=== PATIENT | male | born 1975 | race Caucasian/White ===

== ENCOUNTER 2017-06-17 20:55 | Emergency (ER) | payer SELFPAY ==
[2017-06-17 21:18] LABS: Clarity Turbid (Clear)
[2017-06-17 21:20] LABS: Specific Gravity, Urine 1.025 (1.002-1.036)
[2017-06-17] MEDS ORDERED: Ketorolac Tromethamine 30 MG/ML VIAL ONE ×2 (21:23→22:26)
[2017-06-17 21:46] LABS: Hemoglobin 15.5 g/dL (14.0-18.0)
[2017-06-17 21:47] LABS: #Basophils 0.2 thou/uL (0.0-0.2); #Eosinphils 0.3 thou/uL (0.0-0.7)
[2017-06-17 21:48] LABS: PLT Morphology Comment Appears Adequate
[2017-06-17 21:49] LABS: Red Blood Cell (RBC) Count 5.07 mill/uL (4.70-6.10); White Blood Cell (WBC) Count 12.3 thou/uL (4.8-10.8)
[2017-06-17 21:50] LABS: %Basophils 1.5 % (0.0-1.0); %Eosinophils 2.4 % (0.0-10.0); %Lymphocytes 18.8 % (21.0-51.0); %Monocytes 5.3 % (0.0-10.0); ALT (SGPT) 58 U/L (8-55); AST (SGOT) 36 U/L (5-34); Albumin 4.2 g/dL (3.5-5.0); Alkaline Phosphatase 81 U/L (40-150); Anion Gap 14 mmol/L (10-20); BUN (Urea Nitrogen) 17 mg/dL (8.9-20.6); Bilirubin, Total 0.8 mg/dL (0.2-1.2); Calc. Creatinine Clearance 0 mL/min (70-130); Calcium 9.7 mg/dL (7.8-10.44); Carbon Dioxide 26 mmol/L (22-29); Chloride 106 mmol/L (98-107); Estimated GFR-MDRD 83; Globulin 2.8 g/dL (2.4-3.5); Glucose 168 mg/dL (70-105); Lipase 24 U/L (8-78); Mean Corpuscular HGB CONC 36.5 g/dL (32.0-36.0); Mean Corpuscular Hemoglobin 30.6 pg (27.0-31.0); Mean Corpuscular Volume 83.6 fL (80.0-94.0); Mean Platelet Volume 9.3 fL (7.4-10.4); Platelet Count 234 thou/uL (130-400); Potassium 3.7 mmol/L (3.5-5.1); RBC Distribution Width 11.9 % (11.5-14.5); Sodium 142 mmol/L (136-145)
[2017-06-17 21:51] LABS: #Lymphocytes 2.3 thou/uL (1.20-3.40); #Monocytes 0.7 thou/uL (0.11-0.59); #Neutrophils 8.9 thou/uL (1.40-6.50)
[2017-06-17] MEDS ORDERED: cefTRIAXone\\ROCEPHIN 1 GM VIAL ONE ×2 (21:54→21:55)
[2017-06-17] MEDS ORDERED: Dicyclomine 20 MG TAB ONE (21:56)
[2017-06-17] MEDS ORDERED: HYDROcodone/Acetaminophen 10/325 mg Tablet ONE (22:26)
[2017-06-17] MEDS ORDERED: Fentanyl 100 MCG/2 ML VIAL ONE (22:44)
[2017-06-17] MEDS ORDERED: Ondansetron HCl/PF 4 MG/2 ML Vial ONE (22:44)
--- NOTE | 2017-06-17 23:36 | CT ---
CT ABDOMEN AND PELVIS WITHOUT CONTRAST: 06/17/[address] of the abdomen and pelvis was performed using no oral or IV contrast in a renal stone win col. Axial slices were acquired followed by coronal reconstructions. There is a 9 mm calculus at the left ureteropelvic junction causing mild left hydronephrosis. I see n o other renal stones. No ureteral stones were seen elsewhere. There is no obstruction of the right ur inary tract. The lung bases are clear. The liver, spleen, pancreas, adrenal glands, abdominal aorta were all unrem arkable in appearance within the limitations of a noncontrast study. The left adrenal gland appears n ormal. There is a 2.3 cm right adrenal mass that has CT density near 0. Some sections were below 0. T he findings are classic for an adenoma and little else need be done. The bowel is nondistended. There are no inflammatory changes around bowel. No free air or free fluid was seen. A small fat filled umbilical hernia was noted, of no concern. CT of the pelvis showed no evidence of diverticulitis, other inflammatory change, free fluid, or mass . IMPRESSION: 1. 9 mm calculus at the left UPJ causing mild left hydronephrosis. 2. 2.3 cm right adrenal mass with imaging characteristics fairly classic for an adenoma. 3. Not mentioned above, but imaging of the gallbladder was somewhat difficult as it is fairly op aque. There may be some fatty infiltration in the liver. Right upper quadrant symptoms should be eval uated by ultrasound. POS: HOME
== END 2017-06-17 23:32 | disposition home or self-care (01) ==
LOC: BURERS 20:55
DX: N20.0 Calculus of kidney (principal)
CPT/HCPCS: 74176; 80053; 81003; 83690; 85025; 96365; 96375; 96376; J0696; J1885; J2405; J3010